=== PATIENT | female | born 1985 | race Two or more races ===

== ENCOUNTER 2019-10-30 21:35 | Inpatient (IN) | payer MEDICAID ==
[~2019-10-30] VITALS: Ht 175.3 cm; Wt 71.7 kg
--- NOTE | 2019-10-30 21:40 | NUR ---
PT AAOX4. BIBRA C/O SHE "PASSED OUT AND WOKE UP" AND SAW THE RA BRINING HER TO THE ED. UPON ASSESSMENT, NO NEURO DEFICIT, PERRLA. VSS. NO ACUTE DISTRESS NOTED. DENIES PAIN.
[2019-10-30] MEDS ORDERED: IV NS 0.9% 1,000 ML BAG IV ONE (22:30)
[2019-10-30 22:38] LABS: HEMATOCRIT 28 % (33-45); HEMOGLOBIN 9.5 g/dL (11.5-14.8); MONOCYTES # (AUTO) 0.5 /CMM (0.1-1.30); PLATELET COUNT (AUTO) 76 /CMM (150-450); RED BLOOD CELL COUNT(AUTO) 2.61 MIL/uL (4.0-5.2); WHITE BLOOD COUNT (AUTO) 5.2 K/uL (4.3-11.0)
[2019-10-30 22:42] LABS: BASOPHILS % (AUTO) 0.5 % (0.0-2.0); EOSINOPHILS % (AUTO) 0.6 % (0.0-6.0); LYMPHOCYTES # (AUTO) 1.1 /CMM (0.8-4.8); LYMPHOCYTES % (AUTO) 21.5 % (20.0-44.0); MEAN CORPUSCULAR HGB CONC 34 g/dl (31.0-36.0); MEAN CORPUSCULAR VOLUME 106 fL (82-100); MONOCYTES % (AUTO) 9.7 % (2.0-12.0); NEUTROPHILS # (AUTO) 3.5 /CMM (1.8-8.9); NEUTROPHILS % (AUTO) 67.7 % (43.0-81.0)
[2019-10-30 22:45] LABS: CALCIUM, SERUM 8.4 mg/dL (8.5-10.1); CREATININE 0.8 mg/dL (0.6-1.3); POTASSIUM 3.1 mmol/L (3.5-5.1)
--- NOTE | 2019-10-30 22:49 | NUR ---
URINE SENT TO LAB
[2019-10-30 22:51] LABS: ALBUMIN 2.7 g/dL (3.4-5.0); BILIRUBIN,DIRECT 3.1 mg/dL (0.0-0.2); BILIRUBIN,TOTAL 5.8 mg/dL (0.2-1.0); TOTAL PROTEIN, SERUM 8.5 g/dL (6.4-8.2)
[2019-10-30 23:00] LABS: EOSINOPHILS % (MANUAL) 1 % (0-4); LYMPHOCYTES % (MANUAL) 15 % (16-48); MONOCYTES % (MANUAL) 10 % (0-11.0)
[2019-10-30 23:01] LABS: NEUTROPHILS % (MANUAL) 74 (42-76)
--- NOTE | 2019-10-30 23:03 | NUR ---
BROUGHT TO CT
--- NOTE | 2019-10-30 23:44 | NUR ---
US AT BESIDE
[2019-10-31] MEDS ORDERED: PIPERACILLIN /TAZOBACTAM 3.375 G VIAL IV ONE ×2 (00:44→06:31)
[2019-10-31] MEDS ORDERED: CT SWABBABLE VALVE TRANS SET 1 EA INFUS.SET MC ONE (00:47)
[2019-10-31] MEDS ORDERED: IV NS 0.9% 250 ML IV ONE (00:47)
[2019-10-31] MEDS ORDERED: IOHEXOL-300 100 ML VIAL IV ONE (00:47)
--- NOTE | 2019-10-31 00:55 | NUR ---
BROUGHT TO CT
[2019-10-31] MEDS ORDERED: PIPERACILLIN /TAZOBACTAM 3.375 G in IV D5W 50 ML IV ONE ×2 (01:00→07:00)
--- NOTE | 2019-10-31 01:02 | NUR ---
BACK FROM CT, PLACED ON MONITOR
[2019-10-31 02:00] VITALS: BP 110/67
[2019-10-31] MEDS ORDERED: POTASSIUM CHLORIDE 20 MEQ TAB.PRT.SR PO ONE ×2 (03:40→04:00)
--- NOTE | 2019-10-31 03:48 | NUR ---
REPORT GIVEN TO BRIAN VERA FOR ADITHYA
[2019-10-31 04:00] VITALS: BP 110/67
[2019-10-31] MEDS ORDERED: ACETAMINOPHEN 325 MG TABLET PO PRN (04:00)
[2019-10-31] MEDS ORDERED: ONDANSETRON HCL/PF 4 MG/2 ML VIAL IVP PRN (04:00)
[2019-10-31] MEDS ORDERED: Z GUARD REMEDY 2 OZ OINT TP PRN (04:00)
[2019-10-31] MEDS ORDERED: MAG HYDROX/AL HYDROX/SIMETH 30 ML UDC PO PRN (04:00)
--- NOTE | 2019-10-31 04:00 | NUR ---
received from the er alert and orientated x3. speech clear she sya that someone was ttrying to kill her and they will say i am her sister, that will not be true. Reassured her that no one is allowed in no visitors or sisters or family not to worry she is safe her.
[2019-10-31] MEDS: IV D5/ 0.9% NACL 1,000 ML IV PRN ×2 (04:20→11:27)
--- NOTE | 2019-10-31 07:45 | NUR ---
MS/RN Opening note. Patient received from [employer] shift lead. A/O X3, vital signs stable, denies any abdominal pain, only headache. IV fluids infusing at 125ml/hr, no signs of infiltration. Bed in low setting, call light withn reach. Bed alarm switched on as patient fall risk. Will continue to monitor and ensure safety.
[2019-10-31 08:00] VITALS: BP 102/60
--- NOTE | 2019-10-31 08:15 | NUR ---
MS/RN S/B Dr Suarez Seen by Dr Suarez - labs to be ordered, if within normal limits possible discharge today. Made aware that patient is currently homeless, social service consult ordered.
[2019-10-31 10:28] LABS: BASOPHILS % (AUTO) 0.6 % (0.0-2.0); EOSINOPHILS % (AUTO) 0.2 % (0.0-6.0); HEMATOCRIT 26 % (33-45); HEMOGLOBIN 8.8 g/dL (11.5-14.8); LYMPHOCYTES # (AUTO) 0.7 /CMM (0.8-4.8); LYMPHOCYTES % (AUTO) 18.6 % (20.0-44.0); MEAN CORPUSCULAR HGB CONC 34 g/dl (31.0-36.0); MEAN CORPUSCULAR VOLUME 107 fL (82-100); MONOCYTES # (AUTO) 0.4 /CMM (0.1-1.30); MONOCYTES % (AUTO) 10.6 % (2.0-12.0); NEUTROPHILS # (AUTO) 2.7 /CMM (1.8-8.9); PLATELET COUNT (AUTO) 65 /CMM (150-450); RED BLOOD CELL COUNT(AUTO) 2.44 MIL/uL (4.0-5.2); WHITE BLOOD COUNT (AUTO) 3.9 K/uL (4.3-11.0)
[2019-10-31 10:36] LABS: CALCIUM, SERUM 7.4 mg/dL (8.5-10.1); CREATININE 0.7 mg/dL (0.6-1.3); POTASSIUM 3.2 mmol/L (3.5-5.1)
--- NOTE | 2019-10-31 11:38 | NUR ---
SW Consult SW consult was requested due to pts homelessness/pt living in a detention. SANDRA met with the pt at bedside and conducted an assessment. Pt appeared to be alert and oriented x3 (time, place, self). Pt appeared to be in a depressed mood and presented with a distressed affect. Pt appeared to be confused regarding her current situation. Pt stated that she has been living in a motel in [facility] and that she came from [place]. Pt stated that she would like to go back to [facility] once she is discharged from the hospital. Pt stated that she does not have anyone to be contacted. Pt stated that she has been feeling dizzy and dehydrated. Pts toxicology came back positive for methamphetamines, cannabis and alcohol. Pt stated that she drinks alcohol daily. SANDRA provided the pt with substance abuse referrals. Pt appeared to be well groomed and appropriately dressed. Pt was able to maintain appropriate eye contact and tone of voice throughout the assessment. Plan: SW to follow up regarding pts discharge planning. Pt may be discharged to a homeless detention. Addendum: 10/31/19 at 1415 by GRIS FLORES SANDRA provided the pt with homeless resources which included substance abuse referrals
[2019-10-31] MEDS ORDERED: PIPERACILLIN /TAZOBACTAM 3.375 G in IV D5W 100 ML IV SCH (12:00)
[2019-10-31] MEDS ORDERED: PIPERACILLIN /TAZOBACTAM 3.375 G in IV D5W 50 ML IV SCH (12:00)
--- NOTE | 2019-10-31 13:15 | NUR ---
MS/RN Requesting to leave Patient noted to be changing into street clothes, removing heplock and name bands, stating that she was leaving. Patient asked to explain if something had happened or she was unhappy with the care received. Stated that she was not unhappy with anything and just wanted to go. Explained the risks involved in leaving against medical advice, patient stating that she understood and was willing to accept anything that could possible happen to her. Charge nurse, nursing supervisor filtration (Tiffanie) and Dr Suarez made aware.
--- NOTE | 2019-10-31 14:00 | NUR ---
MS/RN AMA Patient left AMA at 1350. All personal belongings returned to patient including items from safe. Name band removed along with heplock. Patient once again refused to wait for social psychologist to be provided with resources.
--- NOTE | 2019-10-31 14:15 | NUR ---
Discharge Note: Pt was discharged AMA (Against Medical Advice). Pt was provided with homeless resources earlier in the day but the pt did refuse to sign the homeless waiver. Pt appeared to be alert and oriented x4 (time, place, self and situation). Pt had stated earlier that she resides in a motel in [facility].
== END 2019-10-31 14:15 | disposition left against medical advice (07) | DRG 422 ==
LOC: ER 21:37 → MED 10-31 02:22
PROVIDERS: ADMIT Family Medicine; ATTEND Family Medicine
DX: E86.1 Hypovolemia (principal); E44.0 Moderate protein-calorie malnutrition; E87.1 Hypo-osmolality and hyponatremia; E88.09 Other disorders of plasma-protein metabolism, not elsewhere classified; F19.10 Other psychoactive substance abuse, uncomplicated; E87.6 Hypokalemia; Z59.0 Homelessness; F17.210 Nicotine dependence, cigarettes, uncomplicated; F10.10 Alcohol abuse, uncomplicated; D63.8 Anemia in other chronic diseases classified elsewhere; R55 Syncope and collapse; R74.8 Abnormal levels of other serum enzymes; Z68.23 Body mass index [BMI] 23.0-23.9, adult
CPT/HCPCS: 36415; 76705-TC; 80048-TC; 80076-TC; 80305; 82962-TC; 84484-TC; 84703-TC; 85025-TC; 87081-TC; G0378; J2543; J7030; J7042; J7050; J7060; Q9967